=== PATIENT | male | born 1965 | race Caucasian/White ===

== ENCOUNTER 2016-09-30 13:35 | Inpatient (IN) | payer OTHER ==
--- NOTE | ~2016-09-30 | PN ---
Unit #: [id number] #: [id number] Patient: BUCKY ESTEBAN [id number] [facility] [address] [place] [address] [id number] I MR#: [id number] NAME: BUCKY ESTEBAN. ROOM: P211 Age: 51 Sex: M Admission Date: 09/30/2016 : 1965 Attending Physician: Sera Huitron M.D. Admitting Physician: Sera Huitron M.D. Primary Care Physician: Primary Care Physician Anabel ODOM PROGRESS NOTES DATE 10/01/2016 DISCUSSION Mr. Esteban is a 51-year-old white male who was seen today and chart was reviewed and case was discussed with the staff. He has been anxious, withdrawn though has not shown any agitation, irritability and has been cooperative with treatment recommendations and has been taking medications and tolerating them fairly well. MENTAL STATUS EXAMINATION Middle-aged white male who was casually dressed with fair personal hygiene and appears to be in no acute distress or discomfort. He was awake and alert on interaction with intact orientation. His mood was anxious with congruent affect. He denies any suicidal or homicidal ideations. His insight and judgement remains slightly impaired. TREATMENT PLAN 1. Will continue him on his current medications and treatment protocol. Will monitor his response to the medications and make further adjustments as needed. 2. Will continue to follow up. Dictated by... Jose Reynolds/javed TD: 10/02/2016 23:18 JOB #: [id number] Unit #: [id number] #: [id number] Patient: BUCKY ESTEBAN PROGRESS NOTES Page 1 of 1 X Sera Huitron MD PROGRESS NOTE
--- NOTE | ~2016-09-30 | PA ---
Unit #: [id number] #: [id number] Patient: BUCKY ESTEBAN [id number] [facility] [address] [place] [address] [id number] MR#: [id number] NAME: BUCKY ESTEBAN. ROOM: P211 Age: 51 Sex: M Admission Date: 09/30/2016 : 1965 Date of Assessment: 09/30/2016 Attending Physician: Sera Huitron M.D. Admitting Physician: Sera Huitron M.D. Primary Care Physician: Primary Care Physician No PSYCHIATRIC ASSESSMENT DATE OF SERVICE 09/30/2016. IDENTIFYING DATA Mr. Esteban is a 51-year-old white male, who is a resident of [place], [place], and is well known to us from previous multiple encounters and was self-referred to the hospital on a voluntary basis with blood alcohol level of 0.263. CHIEF COMPLAINT "I started drinking again, I couldn't stop." HISTORY OF PRESENT ILLNESS Mr. Esteban is a 51-year-old white male with lifelong history of alcohol dependence, who was recently discharged from my care a couple of months ago and brought himself back to the hospital stating that he started drinking again and he could not stop and "If you don't take me, I kept a bottle at the house because I know I could have a seizure." The patient reports that he relapsed on alcohol and has been drinking about 2 pints a day or more of the whiskey and reports that he has not been eating or sleeping and is not caring for himself and has no day structure and he has been having memory lapses due to drinking and reports history of complicated withdrawals and seizures, and history of delirium tremens and was scared that if he tries to detox on his own, he might end up hurting himself and as such, recommendation for inpatient level of care for medical detox was made and the patient was stepped up to the inpatient unit. SUBSTANCE ABUSE HISTORY The patient has history of experimentation with opioids, acid, cocaine, and cannabis in the past, but alcohol has been his drug of choice as reports that he has been drinking since he was 4 years old and currently has been drinking more than 2 pints of whiskey a day. PAST PSYCHIATRIC HISTORY The patient has had history of inpatient chemical dependency treatment at [facility] and other facilities, and currently he is not active in treatment program, is not seeing a psychiatrist, not taking any psychotropic medications. PAST MEDICAL HISTORY History of withdrawal seizures, hepatitis C, COPD, dyslipidemia. Unit #: [id number] #: [id number] Patient: BUCKY ESTEBAN ALLERGIES No known medication allergies. PERSONAL AND SOCIAL HISTORY A 51-year-old white male, who reports that he is single, unemployed, and lives at home with his mother and father and has fairly decent social support system. MENTAL STATUS EXAMINATION Middle-aged white male who was casually dressed with fair personal hygiene, appears to be in no acute distress or discomfort. He was awake and alert on interaction with intact orientation to time, place, and person. His mood was anxious with a congruent affect. His speech was slow and restricted in content. His thought processes were disorganized with some looseness of associations and suicidal ideations. His insight and judgment remain significantly impaired. DIAGNOSTIC IMPRESSION Psychiatric: Alcohol dependence, moderate and acute withdrawal; alcohol-induced mood disorder. Medical: None. Stressors: Moderate psychosocial stressors. TREATMENT PLAN 1. The patient has presented with a history of substance abuse and mood disorder, and has been decompensating and will need inpatient hospitalization for detoxification, safety, and stabilization. We will start him back on alcohol detox protocol. We will closely monitor for any worsening withdrawal symptoms. 2. Supportive therapy was provided to the patient. 3. Safe, structured, and nourishing environment will be provided. ESTIMATED LENGTH OF STAY 5 to 7 days. ABILITY TO HELP SELF Limited. WILLINGNESS TO HELP SELF The patient appears to be willing to help self. STRENGTHS 1. Communicative. 2. Cooperative. PROBLEMS 1. Chronic dysphoric symptoms. 2. Chronic chemical dependency. 3. Poor social support system. DISCHARGE CRITERIA This will be contingent upon the patient's ability to go through detox without having any significant withdrawal symptoms as well as his ability to stay safe to himself, particularly after discharge from the hospital. Dictated by..Kelly Huitron M.D. Unit #: [id number] #: [id number] Patient: BUCKY ESTEBAN IAA/modl TD: 10/01/2016 07:42 JOB #: [id number] PSYCHIATRIC ASSESSMENT Page 1 of 1 X Sera Huitron MD PSYCHIATRIC ASSESSMENT
--- NOTE | ~2016-09-30 | PN ---
Unit #: [id number] #: [id number] Patient: BUCKY ESTEBAN [id number] [facility] [address] [place] [address] [id number] MR#: [id number] NAME: BUCKY ESTEBAN. ROOM: P211 Age: 51 Sex: M Admission Date: 09/30/2016 : 1965 Attending Physician: Sera Huitron M.D. Admitting Physician: Sera Huitron M.D. Primary Care Physician: Primary Care Physician Anabel VARNER NOTES DATE OF SERVICE 10/03/2016 DISCUSSION Mr. Esteban is a 51-year-old white male who was seen today. Chart was reviewed and case was discussed with the staff. She has been anxious, withdrawn, and rather seclusive to himself. Meanwhile, he has been cooperative with treatment recommendations and has been taking the medications and appears to be coming out of the detox without any complications. MENTAL STATUS EXAMINATION Middle-aged white male who is casually dressed with fair personal hygiene, appears to be in no acute distress or discomfort. The patient was awake and alert on interaction with intact orientation. His mood is anxious with a congruent affect. He denies any suicidal or homicidal ideations. His insight and judgment remain slightly impaired. TREATMENT PLAN 1. We will continue him on his current medications and treatment protocol. We will monitor his response to the medications and make further adjustments as needed. 2. We will continue to follow up. Dictated by... Sera Huitron M.D. IAA/bzg TD: 10/05/2016 08:20 JOB #: [id number] Unit #: [id number] #: [id number] Patient: BUCKY ESTEBAN PROGRESS NOTES Page 1 of 1 X Sera Huitron MD PROGRESS NOTE
--- NOTE | ~2016-09-30 | HP ---
Unit #: [id number] #: [id number] Patient: BUCKY BAIRES [id number] [place] [address] [id number] I MR#: [id number] NAME: BUCKY BAIRES. ROOM: P211 Age: 51 Sex: M Admission Date: 09/30/2016 : 1965 Attending Physician: Sera Huitron M.D. Admitting Physician: Sera Huitron M.D. Primary Care Physician: Primary Care Physician No HISTORY AND PHYSICAL HISTORY OF PRESENT ILLNESS Bucky is a 51 year old admitted to [address] [place] [address] because of his continued abuse of alcohol. He has had other admissions to this facility for the same. PAST MEDICAL HISTORY 1. Long history of alcohol abuse. 2. History of withdrawal seizures. 3. High blood pressure. 4. Hepatitis C. 5. Hyperlipidemia. PAST SURGICAL HISTORY Nothing reported. ALLERGIES No known drug allergies. SOCIAL HISTORY Smokes one pack per day. Drinks at least two pints of liquor on a daily basis. Denies illicit drug use. FAMILY HISTORY Medically noncontributory. REVIEW OF SYSTEMS CONSTITUTIONAL: No fever or chills. HEENT: Denies any sore throat, ear pain or runny nose. CARDIOVASCULAR: Denies chest pain, irregular heart rhythm or palpitations. CHEST: Denies shortness of breath or cough. No hemoptysis. GASTROINTESTINAL: Denies nausea, vomiting, diarrhea or chronic constipation. ENDOCRINE: Denies history of increased thirst or urination. No recent significant weight loss or gain. GENITOURINARY: Denies dysuria, frequency, or hematuria. SKIN: Denies any rashes. HEMATOLOGIC: Denies history of increased bleeding or bruising. MUSCULOSKELETAL: Denies any hot, swollen joints. No generalized muscle pain. NEUROLOGIC: Denies problems with vision or speech. No frequent, severe headaches. No numbness, tingling or weakness in any extremities. Denies loss of bladder or bowel control. Unit #: [id number] #: [id number] Patient: BUCKY BAIRES CURRENT MEDICATIONS Detox protocol PHYSICAL EXAMINATION GENERAL: Alert, well-nourished, in no apparent distress. VITAL SIGNS: Blood pressure 118/82, heart rate 88, respirations 16, temperature 98.6. WEIGHT: 150 pounds. HEIGHT: 5'1". SKIN: Warm and dry without rash or lesion. HEENT: Normocephalic. TMs not viewed. Oral and nasal passages clear. Conjunctivae clear. Pupils equal, round and reactive to light and accommodation. Extraocular movements intact. NECK: Supple without lymphadenopathy or thyromegaly. HEART: Regular rate and rhythm without murmur. LUNGS: Clear. ABDOMEN: Soft, nontender. : Not done. EXTREMITIES: No evidence of cyanosis, clubbing or edema. Moves all extremities without focal deficit. NEUROLOGICAL: Grossly within normal limits. Cranial Nerves: II: Visual cintron are intact. III, IV AND : Extraocular movements are intact. Pupils are equal, round and reactive to light. V: Facial sensation is grossly normal. VII: Facial movements and expression are normal. VIII: Auditory acuity grossly intact. IX, X: Uvula is midline. Phonation is normal. XI: Patient shrugs shoulders and turns head normally. XII: Tongue protrudes in the midline. Sensory and Motor Function: Sensory and motor sensation is grossly normal. Motor: moves all extremities well. Coordination: Gait is normal. Deep Tendon Reflexes: Intact. IMPRESSION Psychiatric admission RECOMMENDATIONS PSYCHIATRIC: Per psychiatrist. MEDICAL: I see no contraindications to participating in facility's activities. MEDICAL PROGNOSIS Good. MEDICAL CONDITION Stable. Dictated by... Maia Castillo PKellyAKelly-Loulou. for Jose Dejesus/danyelle TD: 10/02/2016 02:50 Unit #: [id number] #: [id number] Patient: BUCKY BAIRES JOB #: [id number] HISTORY AND PHYSICAL Page 1 of 1 X Maia Castillo X HISTORY AND PHYSICAL
--- NOTE | ~2016-09-30 | PN ---
Unit #: [id number] #: [id number] Patient: BUCKY ESTEBAN [id number] [facility] [address] [place] [address] [id number] MR#: [id number] NAME: BUCKY ESTEBAN. ROOM: P211 Age: 51 Sex: M Admission Date: 09/30/2016 : 1965 Attending Physician: Sera Huitron M.D. Admitting Physician: Sera Huitron M.D. Primary Care Physician: Anabel Primary Care Physician LEI PROGRESS NOTES DATE 10/02/2016. DISCUSSION Mr. Esteban is a 51-year-old white male who was seen today and chart was reviewed. His case was discussed with the staff. He has been anxious, withdrawn. (1) . He has been cooperative with treatment recommendations and has been taking medications and tolerating them fairly well without any side effects. MENTAL STATUS EXAMINATION Middle-aged white male who was casually dressed with fair personal hygiene and appears to be in no acute distress or discomfort. He was awake and alert on interaction with intact orientation. His mood was anxious with congruent affect. He denies any suicidal or homicidal ideations. His insight and judgement remain slightly impaired. TREATMENT PLAN 1. Will continue him on his current medications and treatment protocol. Will monitor his response to the medications and make further adjustments as needed. 2. Will continue to follow up. Dictated by... Sera Huitron M.D. IAA/gz TD: 10/03/2016 14:55 JOB #: [id number] [facility] PROGRESS NOTES Page 1 of 1 X Sera Huitron MD PROGRESS NOTE
--- NOTE | ~2016-09-30 | DS ---
Unit #: [id number] #: [id number] Patient: BUCKY ESTEBAN [id number] [facility] [address] [place] [address] [id number] I MR#: [id number] NAME: BUCKY ESTEBAN. ROOM: [facility] Age: 51 Sex: M Admission Date: 09/30/2016 : 1965 Discharge Date: 10/05/2016 Attending Physician: Sera Huitron M.D. Primary Care Physician: Primary Care Physician No DISCHARGE SUMMARY IDENTIFYING DATA Mr. Esteban is a 51-year-old single white male, who is a resident of [place], [place], and is known to us from previous multiple encounters and was self-referred to the hospital on voluntary basis with blood alcohol level of 0.263. DISCHARGE DIAGNOSES Psychiatric: Alcohol dependence, moderate and acute withdrawals; alcohol-induced mood disorder. Medical: None. Stressors: Moderate psychosocial stressors. HISTORY OF PRESENT ILLNESS Please see initial psychiatric evaluation for details. PAST PSYCHIATRIC HISTORY Please see initial psychiatric evaluation for details. PAST MEDICAL HISTORY Please see initial psychiatric evaluation for details. HOSPITAL COURSE The patient was [facility] and was oriented to the hospital environment. Routine p.r.n. medications were initiated, and he was started back on his home medications and detox protocol was initiated and was closely monitored. He was taking medications regularly and was tolerating them fairly well and was able to come out of the detox without any complications and was willing to continue treatment on an outpatient basis and as such, it was decided that he will be discharged home and will continue treatment on an outpatient basis. DISCHARGE MEDICATIONS None. DISCHARGE CONDITION Stable. PROGNOSIS Fair. Dictated by... Unit #: [id number] #: [id number] Patient: BUCKY ESTEBAN Jose Reynolds/jackyl TD: 10/05/2016 23:12 JOB #: [id number] DISCHARGE SUMMARY Page 1 of 1 X Sera Huitron MD X DISCHARGE SUMMARY
--- NOTE | ~2016-09-30 | PN ---
Unit #: [id number] #: [id number] Patient: BUCKY ESTEBAN [id number] [facility] [address] [place] [address] [id number] MR#: [id number] NAME: BUCKY ESTEBAN. ROOM: P211 Age: 51 Sex: M Admission Date: 09/30/2016 : 1965 Attending Physician: Sera Huitron M.D. Admitting Physician: Sera Huitron M.D. Primary Care Physician: Primary Care Physician Anabel VARNER NOTES DATE 10/04/2016 DISCUSSION Mr. Esteban is a 51-year-old, white male who was seen today and chart was reviewed and case was discussed with the staff. He has been anxious, withdrawn though has not shown any agitation, irritability and has been cooperative with the treatment recommendations. He has been taking the medication and tolerating them fairly well with no reported side effects. MENTAL STATUS EXAM Middle-aged white male who was casually dressed with fair personal hygiene, appears to be in no acute distress or discomfort. He was awake and alert on interaction with intact orientation. His mood was anxious with congruent affect. He denies any suicidal or homicidal ideation. His insight and judgement remains slightly impaired. TREATMENT PLAN 1. We will continue him on his current treatment protocol. We will monitor his response to the medication and make further adjustments as needed. 2. We will continue to follow up. Dictated by... Jose Reynolds/danyelle TD: 10/07/2016 23:12 JOB #: [id number] Unit #: [id number] #: [id number] Patient: BUCKY ESTEBAN [facility] PROGRESS NOTES Page 1 of 1 X Sera Huitron MD PROGRESS NOTE
[2016-10-01 09:43] LABS: BASOPHIL% 0.6 % (0-2.5); EOSINOPHIL# 0.1 X10e3 (0-0.7); EOSINOPHIL% 0.9 % (0.0-7.0); HEMATOCRIT 44.6 % (38.0-50.0); LYMPHOCYTE# 2.1 X10e3 (1.0-3.5); LYMPHOCYTE% 27.9 % (17.0-45.0); MEAN CELL VOLUME 92.8 FL (83-96); MEAN CORPUSCULAR HEMOGLOBIN 31.3 PG (28-34); MEAN CORPUSCULAR HGB CONC 33.7 g/dL (30-36); MEAN PLATELET VOLUME 8.7 FL (6.5-11.5); MONOCYTE# 0.6 X10e3 (0-1.0); MONOCYTE% 8.3 % (3.0-12.0); NEUTROPHIL# 4.8 X10e3 (1.5-7.1); NEUTROPHIL% 62.3 % (40-75); PLATELET COUNT 194 X10e3 (140-420); RED CELL DISTRIBUTION WIDTH 13.7 % (11.0-15.5); WHITE BLOOD COUNT 7.7 X10e3 (4.0-10.5)
[2016-10-01 09:44] LABS: DIFF IND NO
[2016-10-01 09:48] LABS: URINE APPEARANCE CLOUDY; URINE BILIRUBIN NEG (NEG); URINE BLOOD NEG (NEG); URINE COLOR YELLOW; URINE GLUCOSE 300 MG/DL (NORM); URINE KETONE NEG (NEG); URINE LEUKOCYTE ESTERASE NEG (NEG); URINE NITRATE NEG (NEG); URINE PROTEIN 1+ (NEG); URINE SPECIFIC GRAVITY 1.015 (1.003-1.035); URINE UROBILINOGEN NORM (NORM)
[2016-10-01 09:55] LABS: URINE AMORPHOUS SEDIMENT AMORP URATES; URINE SQUAMOUS EPITHELIAL CELL OCCAS /[HPF]
[2016-10-01 09:57] LABS: THYROID STIMULATING HORMONE 1.27 uIU/ml (0.34-5.60)
[2016-10-01 10:02] LABS: ALBUMIN SERUM 3.7 g/dL (3.5-5.0); BILIRUBIN,TOTAL 1.7 mg/dL (0.2-2.0); BUN/CREATININE RATIO 13.63; CALCIUM SERUM 9.2 mg/dL (8.4-10.2); CREATININE SERUM 1.1 mg/dL (0.6-1.4); GLOM FILT RATE Estimated 76.3 mL/min (>60); POTASSIUM 4.1 mmol/L (3.5-5.1); PROTEIN TOTAL SERUM 5.9 g/dL (6.0-8.3)
[2016-10-01 10:04] LABS: FREE THYROXIN (T4) 0.85 ng/dL (0.58-1.64)
[2016-10-01 10:32] LABS: AMPHETAMINE NEG (NEG); BARBITURATES NEG (NEG); BENZODIAZEPINES NEG (NEG); COCAINE NEG (NEG); MARIJUANA NEG (NEG); OPIATES NEG (NEG); TRICYCLIC ANTIDEPRESSANTS NEG (NEG); U METHADONE NEG (NEG)
== END 2016-10-05 12:38 | disposition home or self-care (01) | DRG 897 ==
LOC: POF 13:35 → P2S 14:15
PROVIDERS: Psychiatry & Neurology Psychiatry
PROC: HZ2ZZZZ Detoxification Services for Substance Abuse Treatment (ICD-10-PCS; principal; 2016-09-30)
DX: F10.230 Alcohol dependence with withdrawal, uncomplicated (principal); R45.851 Suicidal ideations; F10.24 Alcohol dependence with alcohol-induced mood disorder; Y90.8 Blood alcohol level of 240 mg/100 ml or more; F17.210 Nicotine dependence, cigarettes, uncomplicated
CPT/HCPCS: 80053; 80307; 81003; 84439; 84443; 85025; 86592

== ENCOUNTER 2016-10-29 09:00 | Inpatient (IN) | payer OTHER ==
--- NOTE | ~2016-10-29 | PA ---
Unit #: [id number] #: [id number] Patient: BUCKY ESTEBAN [id number] [facility] [address] [place] [address] [id number] I MR#: [id number] NAME: BUCKY ESTEBAN. ROOM: P211 Age: 51 Sex: M Admission Date: 10/29/2016 : 1965 Date of Assessment: 10/29/2016 Attending Physician: Sera Huitron M.D. Admitting Physician: Sera Huitron M.D. Primary Care Physician: Primary Care Physician No PSYCHIATRIC ASSESSMENT DATE OF SERVICE 10/29/2016. IDENTIFYING DATA Mr. Esteban is a 51-year-old, , white male, who is a resident of [place], [place], and is very well known to us from previous multiple encounters and self-referred to the hospital on a voluntary basis. CHIEF COMPLAINT "I'm drinking about 2 pints a day for the last 3 days." HISTORY OF PRESENT ILLNESS Mr. Esteban is a 51-year-old white male with a long history of substance abuse and dependence, who was recently discharged from my care last month and brought himself back to the hospital stating that he has been drinking 2 pints a day for the last 3 days and before that it was about a pint for a week and "I stopped for like a month almost, may be 3 weeks I feel lonely, that is why I started back. The people at stated that I cannot have a girlfriend, but I like AA, but I do not like some of the rules and I feel depressed and lonely and that is the main thing. Once I started drinking, it just got to the point where I cannot stop and I have trouble breathing and sleeping and sleep maybe 2 hours at night and my last drink was this morning on the way here and must have been about 9:00 a.m., just like a little bit of the bottle. If I just stop drinking without getting help, I will have seizures. I know that if I don't get medication and I drink, I will have a seizure and starting to get sick. I am worried about things getting sick and I am getting this thing going on in my brain. It feels like a sobbing on the top, hear noise is a warning sign." He does have a history of withdrawal seizures and delirium tremens and as such, recommendation for inpatient level of care for safety and stabilization was made and the patient was transferred to us. SUBSTANCE ABUSE HISTORY The patient reports history of experimentation with opioids, acid, cocaine, and cannabis in the past, but alcohol has been his drug of choice and has been drinking for 45 years and currently has been drinking 2 pints of alcohol a day. PAST PSYCHIATRIC HISTORY The patient has had a history of multiple inpatient psychiatric and chemical dependency treatments and has been at [facility] multiple times in addition to being at [facility] and at [facility]. Review of the medical records indicate that currently he is not active in any Unit #: [id number] #: [id number] Patient: BUCKY ESTEBAN treatment program, is not seeing a psychiatrist, and is not taking any psychotropic medications. PAST MEDICAL HISTORY Hepatitis C, history of withdrawal seizures, COPD, dyslipidemia. ALLERGIES No known medication allergies. CURRENT MEDICATIONS None. PERSONAL AND SOCIAL HISTORY A 51-year-old white male, who reports that he is single, unemployed, and lives at home with his mother and father and has fairly decent social support system. MENTAL STATUS EXAMINATION Middle-aged white male, who was casually dressed with fair personal hygiene, appears to be in no acute distress or discomfort. He was awake and alert on interaction with intact orientation to time, place, and person. His mood was anxious and depressed with a congruent affect. His speech was slow and restricted in content. He reports having suicidal ideations, but denies any homicidal ideations, and also denies any auditory or visual hallucinations. His insight and judgment remain significantly impaired. DIAGNOSTIC IMPRESSION Psychiatric: Alcohol dependence, moderate and acute withdrawals; alcohol-induced mood disorder. Medical: Hepatitis C, history of withdrawal seizures, chronic obstructive pulmonary disease, dyslipidemia. Stressors: Moderate psychosocial stressors. TREATMENT PLAN 1. The patient has presented with a history of substance abuse and mood disorder and has been decompensating and will need inpatient hospitalization for safety and stabilization. We will start him back on his home medications. We will adjust the medications and monitor response. 2. Supportive therapy was provided to the patient. 3. Safe, structured, and nourishing environment will be reported. ESTIMATED LENGTH OF STAY 5 to 7 days. ABILITY TO HELP SELF Limited. WILLINGNESS TO HELP SELF The patient appears to be willing to help self. STRENGTHS 1. Communicative. 2. Cooperative. PROBLEMS Unit #: [id number] #: [id number] Patient: BUCKY ESTEBAN 1. Chronic dysphoric symptoms. 2. Chronic chemical dependency. 3. Poor social support system. DISCHARGE CRITERIA This will be contingent upon the patient's ability to go through detox without having any significant withdrawal symptoms as well as his ability to stay safe to himself, particularly after discharge from the hospital. Dictated by... Sera Huitron M.D. MARVEL/bayron TD: 10/30/2016 08:21 JOB #: [id number] PSYCHIATRIC ASSESSMENT Page 1 of 1 X Sera Huitron MD X PSYCHIATRIC ASSESSMENT
--- NOTE | ~2016-10-29 | PN ---
Unit #: [id number] #: [id number] Patient: BUCKY ESTEBAN [id number] [facility] [address] [place] [address] [id number] I MR#: [id number] NAME: BUCKY ESTEBAN. ROOM: P211 Age: 51 Sex: M Admission Date: 10/29/2016 : 1965 Attending Physician: Sera Huitron M.D. Admitting Physician: Sera Huitron M.D. Primary Care Physician: Primary Care Physician Anabel ODOM PROGRESS NOTES DATE 10/31/2016 DISCUSSION Mr. Esteban is a 51-year-old, white male who was seen today and chart was reviewed and case was discussed with the staff. He has been anxious, withdrawn and rather seclusive to himself. Meanwhile, he has been cooperative with the treatment recommendations. He has been taking the medication and tolerating them fairly well with no reported side effects. MENTAL STATUS EXAM Middle-aged white male who was casually dressed with fair personal hygiene, appears to be in no acute distress or discomfort. He was awake and alert on interaction with intact orientation. His mood was anxious and depressed with congruent affect. He denies any suicidal or homicidal ideation. Also, denies any auditory or visual hallucinations. His insight and judgement remains slightly impaired. TREATMENT PLAN 1. We will continue him on his current medications and treatment protocol. We will monitor his response to the medication and make further adjustments as needed. 2. We will continue to follow up. Dictated by... Jose Reynolds/danyelle TD: 11/01/2016 03:16 JOB #: [id number] Unit #: [id number] #: [id number] Patient: BUCKY ESTEBAN PROGRESS NOTES Page 1 of 1 X Sera Huitron MD PROGRESS NOTE
--- NOTE | ~2016-10-29 | HP ---
Unit #: [id number] #: [id number] Patient: BUCKY BAIRES [id number] [facility] [address] [place] [address] [id number] I MR#: [id number] NAME: BUCKY BAIRES. ROOM: P211 Age: 51 Sex: M Admission Date: 10/29/2016 : 1965 Attending Physician: Sera Huitron M.D. Admitting Physician: Sera Huitron M.D. Primary Care Physician: Primary Care Physician No HISTORY AND PHYSICAL HISTORY OF PRESENT ILLNESS Bucky is a 51 year old admitted to [address] [place] [address] because of his continued abuse of alcohol. The patient was seen and H and P dated 10/01/2016 was reviewed. This is current. No changes. Please see H and P dated 10/11/2016. Dictated by... Maia Castillo P.A.-C. for Jose Dejesus/danyelle TD: 10/30/2016 02:20 JOB #: [id number] HISTORY AND PHYSICAL Page 1 of 1 X Maia Castillo HISTORY AND PHYSICAL
--- NOTE | ~2016-10-29 | DS ---
Unit #: [id number] #: [id number] Patient: [facility]EBAN [id number] [facility] [address] [place] [address] [id number] MR#: [id number] NAME: BUCKY ESTEBAN. ROOM: P211 Age: 51 Sex: M Admission Date: 10/29/2016 : 1965 Discharge Date: 11/02/2016 Attending Physician: Sera Huitron M.D. Primary Care Physician: Primary Care Physician No DISCHARGE SUMMARY IDENTIFYING DATA Mr. Esteban is a 51-year-old white male who is a resident of [place], [place] and he is known to us from previous multiple encounters and was self-referred to the hospital. DISCHARGE DIAGNOSES Psychiatric: Alcohol dependence, moderate, in acute withdrawals. Alcohol-induced mood disorder. Medical: Hepatitis C, history of withdrawal seizures, chronic obstructive pulmonary disease, dyslipidemia. Stressors: Moderate psychosocial stressors. HISTORY OF PRESENT ILLNESS Please see initial psychiatric evaluation for details. PAST PSYCHIATRIC HISTORY Please see initial psychiatric evaluation for details. PAST MEDICAL HISTORY Please see initial psychiatric evaluation for details. HOSPITAL COURSE The patient was admitted to the adult chemical dependency unit at [facility] and was oriented to the hospital environment. Routine p.r.n. medications were initiated, and he was started on the detox protocol and was closely monitored. He was taking the medications regularly. He was tolerating them fairly well and was able to show a decent therapeutic response with improvement in depression and anxiety and he was able to come out of the detox without any complications, and as such, it was decided that he will be discharged home and will continue treatment on an outpatient basis. DISCHARGE MEDICATIONS None. DISCHARGE CONDITION Stable. PROGNOSIS Fair. Unit #: [id number] #: [id number] Patient: BUCKY ESTEBAN Dictated by... Jose Reynolds/bayron TD: 11/02/2016 07:41 JOB #: [id number] DISCHARGE SUMMARY Page 1 of 1 X Sera Huitron MD X DISCHARGE SUMMARY
--- NOTE | ~2016-10-29 | PN ---
Unit #: [id number] #: [id number] Patient: BUCKY ESTEBAN [id number] [facility] [address] [place] [address] [id number] I MR#: [id number] NAME: BUCKY ESTEBAN. ROOM: P211 Age: 51 Sex: M Admission Date: 10/29/2016 : 1965 Attending Physician: Sera Huitron M.D. Admitting Physician: Sera Huitron M.D. Primary Care Physician: Primary Care Physician Anabel VARNER NOTES DATE 11/01/2016 DISCUSSION Mr. Esteban is a 51-year-old, white male who was seen today and chart was reviewed and case was discussed with the staff. He has been anxious, withdrawn and rather seclusive to himself. Meanwhile, he has been cooperative with treatment recommendations. He has been taking medications and tolerating them fairly well with no reported side effects. MENTAL STATUS EXAM Middle-aged white male who was casually dressed with fair personal hygiene, appears to be in no acute distress or discomfort. He was awake and alert on interaction with intact orientation. His mood was anxious with congruent affect. He denies any suicidal or homicidal ideation. His insight and judgement remains slightly impaired. TREATMENT PLAN 1. We will continue him on his current medications and treatment protocol. We will monitor his response to the medications and make further adjustments as needed. 2. We will continue to follow up. Dictated by... Jose Reynolds/danyelle TD: 11/02/2016 03:47 JOB #: [id number] Unit #: [id number] #: [id number] Patient: BUCKY ESTEBAN LEI PROGRESS NOTES Page 1 of 1 X Sera Huitron MD PROGRESS NOTE
--- NOTE | ~2016-10-29 | PN ---
Unit #: [id number] #: [id number] Patient: BUCKY ESTEBAN [id number] [facility] [address] [place] [address] [id number] I MR#: [id number] NAME: BUCKY ESTEBAN. ROOM: P211 Age: 51 Sex: M Admission Date: 10/29/2016 : 1965 Attending Physician: Sera Huitron M.D. Admitting Physician: Sera Huitron M.D. Primary Care Physician: Primary Care Physician Anabel VARNER NOTES DATE 10/30/2016 DISCUSSION Mr. Esteban is a 51-year-old, white male who was seen today and chart was reviewed and case was discussed with the staff. He has been anxious, withdrawn, seclusive to himself. Meanwhile, he has been cooperative with treatment recommendations. He has been taking medications and tolerating them fairly well with no reported side effects. MENTAL STATUS EXAM Middle-aged white male who was casually dressed with fair personal hygiene, appears to be in no acute distress or discomfort. He was awake and alert on interaction with intact orientation. His mood was anxious and depressed with congruent affect. His speech was slow and goal directed. He denies any suicidal or homicidal ideation. Also, denies any auditory or visual hallucinations. His insight and judgement remains slightly impaired. TREATMENT PLAN 1. We will continue him on his current medications and treatment protocol. We will monitor his response to the medication and make further adjustments as needed. 2. We will continue to follow up. Dictated by... Jose Reynolds/danyelle TD: 10/31/2016 03:13 JOB #: [id number] Unit #: [id number] #: [id number] Patient: BUCKY ESTEBANMAURIZIO PROGRESS NOTES Page 1 of 1 X Sera Huitron MD PROGRESS NOTE
[2016-10-30 12:47] LABS: URINE APPEARANCE CLEAR; URINE BILIRUBIN NEG (NEG); URINE BLOOD NEG (NEG); URINE COLOR YELLOW; URINE GLUCOSE NEG (NEG); URINE KETONE NEG (NEG); URINE LEUKOCYTE ESTERASE NEG (NEG); URINE NITRATE NEG (NEG); URINE PH 5.5 (5-8); URINE PROTEIN NEG (NEG); URINE SPECIFIC GRAVITY 1.017 (1.003-1.035); URINE UROBILINOGEN 0.2 MG/DL (NEG)
[2016-10-30 12:58] LABS: AMPHETAMINE NEG (NEG); BARBITURATES NEG (NEG); BENZODIAZEPINES NEG (NEG); COCAINE NEG (NEG); MARIJUANA NEG (NEG); OPIATES NEG (NEG); TRICYCLIC ANTIDEPRESSANTS NEG (NEG); U METHADONE NEG (NEG)
== END 2016-11-02 10:25 | DRG 897 ==
LOC: P2S 15:04
PROVIDERS: Psychiatry & Neurology Psychiatry
PROC: HZ2ZZZZ Detoxification Services for Substance Abuse Treatment (ICD-10-PCS; principal; 2016-10-29)
DX: F10.239 Alcohol dependence with withdrawal, unspecified (principal); F10.24 Alcohol dependence with alcohol-induced mood disorder; B19.20 Unspecified viral hepatitis C without hepatic coma; J44.9 Chronic obstructive pulmonary disease, unspecified; E78.5 Hyperlipidemia, unspecified
CPT/HCPCS: 80307; 81003; 86592

== ENCOUNTER 2016-12-20 12:00 | Inpatient (IN) | payer OTHER ==
--- NOTE | ~2016-12-20 | HP ---
Unit #: [id number] #: [id number] Patient: BUCKY BAIRES [id number] [place] [address] [id number] I MR#: [id number] NAME: BUCKY BAIRES. ROOM: P207 Age: 51 Sex: M Admission Date: 12/20/2016 : 1965 Attending Physician: Sera Huitron M.D. Admitting Physician: Sera Huitron M.D. Primary Care Physician: Primary Care Physician No HISTORY AND PHYSICAL HISTORY OF PRESENT ILLNESS Bucky is a 51 year old admitted to [address] [place] [address] because of his continued abuse of alcohol. PAST MEDICAL HISTORY 1. Long history of alcohol abuse. 2. History of withdrawal seizures. 3. High blood pressure. 4. Hepatitis C. 5. Hyperlipidemia. PAST SURGICAL HISTORY Nothing reported. ALLERGIES No known drug allergies. SOCIAL HISTORY Smokes 1 pack per day. Drinks at least 2 pints of liquor on a daily basis. Denies illicit drug use. FAMILY HISTORY Medically noncontributory. REVIEW OF SYSTEMS CONSTITUTIONAL: No fever or chills. HEENT: Denies any sore throat, ear pain or runny nose. CARDIOVASCULAR: Denies chest pain, irregular heart rhythm or palpitations. CHEST: Denies shortness of breath or cough. No hemoptysis. GASTROINTESTINAL: Denies nausea, vomiting, diarrhea or chronic constipation. ENDOCRINE: Denies history of increased thirst or urination. No recent significant weight loss or gain. GENITOURINARY: Denies dysuria, frequency, or hematuria. SKIN: Denies any rashes. HEMATOLOGIC: Denies history of increased bleeding or bruising. MUSCULOSKELETAL: Denies any hot, swollen joints. No generalized muscle pain. NEUROLOGIC: Denies problems with vision or speech. No frequent, severe headaches. No numbness, tingling or weakness in any extremities. Denies loss of bladder or bowel control. CURRENT MEDICATIONS Unit #: [id number] #: [id number] Patient: BUCKY BAIRES Detox protocol. PHYSICAL EXAMINATION GENERAL: Alert, well-nourished, in no apparent distress. VITAL SIGNS: Blood pressure 120/82, heart rate 80, respirations 16, temperature 98.6. WEIGHT: 150. HEIGHT: 5 feet 11 inches. SKIN: Warm and dry without rash or lesion. HEENT: Normocephalic. TMs not viewed. Oral and nasal passages clear. Conjunctivae clear. PERRLA. EOMs intact. NECK: Supple without lymphadenopathy or thyromegaly. HEART: Regular rate and rhythm without murmur. LUNGS: Clear. ABDOMEN: Soft, nontender. : Not done. EXTREMITIES: No evidence of cyanosis, clubbing or edema. Moves all without focal deficit. NEUROLOGICAL: Grossly within normal limits. Cranial Nerves: II: Visual cintron are intact. III, IV AND : Extraocular movements are intact. Pupils are equal, round and reactive to light. V: Facial sensation is grossly normal. VII: Facial movements and expression are normal. VIII: Auditory acuity grossly intact. IX, X: Uvula is midline. Phonation is normal. XI: Patient shrugs shoulders and turns head normally. XII: Tongue protrudes in the midline. Sensory and Motor Function: Sensory and motor sensation is grossly normal. Motor: moves all extremities well. Coordination: Gait is normal. Deep Tendon Reflexes: Intact. IMPRESSION Psychiatric admission. RECOMMENDATIONS PSYCHIATRIC: Per psychiatrist. MEDICAL: See no contraindications to participate in facility's activities. MEDICAL PROGNOSIS Good. MEDICAL CONDITION Stable. Dictated by... Maia Castillo PKellyACharisse. for Jose Dejesus/javed TD: 12/20/2016 20:08 JOB #: [id number] Unit #: [id number] #: [id number] Patient: BUCKY BAIRES HISTORY AND PHYSICAL Page 1 of 1 X Maia Castillo HISTORY AND PHYSICAL
--- NOTE | ~2016-12-20 | PN ---
Unit #: [id number] #: [id number] Patient: BUCKY ESTEBAN [id number] [facility] [address] [place] [address] [id number] I MR#: [id number] NAME: BUCKY ESTEBAN. ROOM: P207 Age: 51 Sex: M Admission Date: 12/20/2016 : 1965 Attending Physician: Sera Huitron M.D. Admitting Physician: Sera Huitron M.D. Primary Care Physician: Primary Care Physician Anabel VARNER NOTES DATE 12/23/2016 DISCUSSION Mr. Esteban is a 57-year-old, white male with alcohol dependence who was seen today and chart was reviewed with staff. He has been anxious, withdrawn though has not shown any agitation, irritability and has been cooperative with treatment recommendations. He has been taking medications and tolerating them fairly well. MENTAL STATUS EXAM Middle-aged white male who was casually dressed with fair personal hygiene, appears to be in no acute distress or discomfort. He was awake and alert on interaction with intact orientation. His mood was anxious with congruent affect. He denies any suicidal or homicidal ideation. His insight and judgement remains slightly impaired. TREATMENT PLAN 1. We will continue him on his current medications and treatment protocol. We will monitor his response to medication and make further adjustments as needed. 2. We will continue to follow up. Dictated by... Jose Reynolds/danyelle TD: 12/25/2016 02:55 JOB #: [id number] Unit #: [id number] #: [id number] Patient: BUCKY ESTEBAN LEI PROGRESS NOTES Page 1 of 1 X Sera Huitron MD PROGRESS NOTE
--- NOTE | ~2016-12-20 | PN ---
Unit #: [id number] #: [id number] Patient: BUCKY ESTEBAN [id number] [facility] [address] [place] [address] [id number] I MR#: [id number] NAME: BUCKY ESTEBAN. ROOM: P207 Age: 51 Sex: M Admission Date: 12/20/2016 : 1965 Attending Physician: Sera Huitron M.D. Admitting Physician: Sera Huitron M.D. Primary Care Physician: Primary Care Physician Anabel VARNER NOTES DATE OF SERVICE: 12/24/2016 SUBJECTIVE Mr. Esteban is a 51-year-old white male, who was seen today and chart was reviewed and case was discussed with the staff. He has been anxious, withdrawn, and rather seclusive to himself. has been taking medications and tolerating them fairly well with no reported side effects. MENTAL STATUS EXAMINATION Middle-aged white male, who was casually dressed with fair personal hygiene, appears to be in . He was awake and alert with intact orientation. His mood was anxious with a congruent affect. TREATMENT PLAN 1. We will continue on his current medications and treatment protocol. We will monitor his response . Dictated by... Jose Reynolds/bayron TD: 12/24/2016 14:05 JOB #: [id number] [facility] PROGRESS NOTES Page 1 of 1 X Sera Huitron MD PROGRESS NOTE
--- NOTE | ~2016-12-20 | DS ---
Unit #: [id number] #: [id number] Patient: BUCKY ESTEBAN [id number] [facility] [address] [place] [address] [id number] I MR#: [id number] NAME: BUCKY ESTEBAN. ROOM: [facility] Age: 51 Sex: M Admission Date: 12/20/2016 : 1965 Discharge Date: 12/25/2016 Attending Physician: Sera Huitron M.D. Primary Care Physician: Primary Care Physician No DISCHARGE SUMMARY IDENTIFYING DATA Mr. Esteban is a 51-year-old white male, who is a resident of alcohol dependence, who is known to us from previous encounter, was self-referred to the hospital on a voluntary basis. DISCHARGE DIAGNOSES Psychiatric: Alcohol dependence, moderate and acute withdrawals, alcohol-induced mood disorder. Medical: Hepatitis C, chronic obstructive pulmonary disease, history of withdrawal seizures. Stressors: Moderate psychosocial stressors. HISTORY OF PRESENT ILLNESS Please see initial psychiatric evaluation for details. PAST PSYCHIATRIC HISTORY Please see initial psychiatric evaluation for details. PAST MEDICAL HISTORY Please see initial psychiatric evaluation for details. HOSPITAL COURSE The [facility] and was oriented to the hospital environment. Routine p.r.n. medications were initiated, and he was started back on his home medications and detox protocol for alcohol was initiated and he was closely monitored. He was taking the medications regularly and was tolerating them fairly well and was able to show a decent therapeutic response and as such, it was decided that he will be discharged home and will continue treatment on an outpatient basis. DISCHARGE MEDICATIONS None. DISCHARGE CONDITION Stable. PROGNOSIS Fair. Dictated by... Sera Huitron M.D. Unit #: [id number] #: [id number] Patient: BUCKY ESTEBAN IAA/modl TD: 12/25/2016 12:45 JOB #: [id number] DISCHARGE SUMMARY Page 1 of 1 X Sera Huitron MD X DISCHARGE SUMMARY
--- NOTE | ~2016-12-20 | PN ---
Unit #: [id number] #: [id number] Patient: BUCKY ESTEBAN [id number] [facility] [address] [place] [address] [id number] I MR#: [id number] NAME: BUCKY ESTEBAN. ROOM: P207 Age: 51 Sex: M Admission Date: 12/20/2016 : 1965 Attending Physician: Sera Huitron M.D. Admitting Physician: Sear Huitorn M.D. Primary Care Physician: Primary Care Physician Anabel ODOM PROGRESS NOTES DATE December 21, 2016 DISCUSSION Mr. Esteban is a 51-year-old white male, who was seen today and chart was reviewed and the case was discussed with the staff. He has been anxious, withdrawn, restless, and discomfort. Meanwhile, he has been taking the medications and tolerating them fairly well with no reported side effects. MENTAL STATUS EXAMINATION Middle-aged Young white male, who was casually dressed with fair personal hygiene and appears to be in no acute distress or discomfort. He was awake and alert with impaired attention and concentration. His mood is anxious with a congruent affect. He denies any suicidal or homicidal ideations. His insight and judgment remain slightly impaired. TREATMENT PLAN 1. We will continue him on his current medications and treatment protocol, and will monitor his response to the medications, and make further adjustments as needed. 2. We will continue to followup. Dictated by... Jose Reynolds/zoila TD: 12/21/2016 13:04 JOB #: [id number] Unit #: [id number] #: [id number] Patient: BUCKY ESTEBAN PROGRESS NOTES Page 1 of 1 X Sera Huitron MD PROGRESS NOTE
--- NOTE | ~2016-12-20 | PN ---
Unit #: [id number] #: [id number] Patient: BUCKY ESTEBAN [id number] [facility] [address] [place] [address] [id number] I MR#: [id number] NAME: BUCKY ESTEBAN. ROOM: P207 Age: 51 Sex: M Admission Date: 12/20/2016 : 1965 Attending Physician: Sera Huitron M.D. Admitting Physician: Sera Huitron M.D. Primary Care Physician: Primary Care Physician Anabel ODOM PROGRESS NOTES DATE 12/22/2016 DISCUSSION Mr. Esteban is a 51-year-old white male who was seen today and chart was reviewed and case was discussed with the staff. Anxious, withdrawn and pacing the hallways and seen to be in some distress and discomfort as he is going through detox. Meanwhile, he has been taking medications and tolerating them fairly well. MENTAL STATUS EXAMINATION Middle-aged white male who was casually dressed with fair personal hygiene and appears to be in slight distress and discomfort. He was awake and alert with intact orientation. His mood was anxious with a congruent affect. He denies any suicidal or homicidal ideations. His insight and judgement remains slightly impaired. TREATMENT PLAN 1. Will continue his current treatment protocol and will monitor his response and make further adjustments as needed. 2. Will continue to follow up. Dictated by... Jose Reynolds/javed TD: 12/22/2016 18:31 JOB #: [id number] Unit #: [id number] #: [id number] Patient: BUCKY ESTEBAN PROGRESS NOTES Page 1 of 1 X Sera Huitron MD PROGRESS NOTE
--- NOTE | ~2016-12-20 | PA ---
Unit #: [id number] #: [id number] Patient: BUCKY ESTEBAN [id number] [facility] [address] [place] [address] [id number] I MR#: [id number] NAME: BUCKY ESTEBAN. ROOM: P207 Age: 51 Sex: M Admission Date: 12/20/2016 : 1965 Date of Assessment: Attending Physician: Sera Huitron M.D. Admitting Physician: Sera Huitron M.D. Primary Care Physician: Primary Care Physician No PSYCHIATRIC ASSESSMENT DATE OF SERVICE 12/20/2016. IDENTIFYING DATA Mr. Esteban is a 51-year-old, , white male with a history of alcohol dependence, who is a resident of [place], [place], and is very well known to us from previous multiple encounters and was self-referred back to the hospital on a voluntary basis with a blood alcohol level of 0.217. CHIEF COMPLAINT "I cannot carry it out and stop on my own." HISTORY OF PRESENT ILLNESS Mr. Esteban is a 51-year-old white male with a long history of alcohol dependence, who was recently detoxed and now presented himself again stating that he cannot stop drinking on his own and "too much of drinking and I cannot stop, I am sick to ." The patient reports he has been attending meetings and was sober for a month and he relapsed a couple of weeks ago and started drinking half a gallon of whiskey and is trying to taper off by drinking just one pint a day for the past few days and his last drink was today about 1 hour ago and has a history of withdrawal seizures and history of delirium tremens and his last use was 3 years ago; however, he was seen to be in significant distress and discomfort and does report increasing depression, anxiety, irritability, but denies any suicidal ideations, intent, or plan and as such, recommendation for inpatient detox was made and the patient was transferred to us. SUBSTANCE ABUSE HISTORY The patient reports history of heroin abuse via IV in the past, but reports that he has not used any heroin for the last few years and alcohol has been his drug of choice as he has been drinking half a gallon a day. PAST PSYCHIATRIC HISTORY The patient has had a history of numerous and multiple inpatient chemical dependency treatments including being at [facility], [facility], and [facility], and review of the medical records indicate that he is currently not active in any treatment program, is not seeing a psychiatrist, and not taking any psychotropic medications. PAST MEDICAL HISTORY Hepatitis C, COPD, history of withdrawal seizures. Unit #: [id number] #: [id number] Patient: BUCKY ESTEBAN ALLERGIES No known medication allergies. PERSONAL AND SOCIAL HISTORY A 51-year-old white male, who reports that he is single, unemployed, and lives alone and has poor social support system. MENTAL STATUS EXAMINATION Middle-aged white male, who was casually dressed with fair personal hygiene, appears to be in no acute distress or discomfort. He was awake and alert on interaction with intact orientation. His mood was anxious and depressed with a congruent affect. His speech was slow and goal directed. He denies any suicidal or homicidal ideations and also denies any auditory or visual hallucinations. His insight and judgment remain slightly impaired. DIAGNOSTIC IMPRESSION Psychiatric: Alcohol dependence, moderate and acute withdrawals; alcohol-induced mood disorder. Medical: Hepatitis C, chronic obstructive pulmonary disease, history of withdrawal seizures. TREATMENT PLAN 1. The patient has presented with a history of substance abuse and mood disorder, and has been decompensating and will need inpatient hospitalization for detoxification, safety, and stabilization. We will start him on detox protocol. We will monitor his response to medications and make further adjustments as needed. 2. Supportive therapy was provided to the patient. 3. Safe, structured, and nourishing environment will be provided. ESTIMATED LENGTH OF STAY 4 to 5 days. ABILITY TO HELP SELF Limited. WILLINGNESS TO HELP SELF The patient appears to be willing to help self. STRENGTHS 1. Communicative. 2. Cooperative. PROBLEMS 1. Chronic chemical dependency. 2. Poor social support system. DISCHARGE CRITERIA This will be contingent upon the patient's ability to go through detox without having any significant withdrawal symptoms as well as his ability to stay safe to himself, particularly after discharge from the hospital. Dictated by... Sera Huitron M.D. Unit #: [id number] #: [id number] Patient: BUCKY ESTEBAN IAA/modl TD: 12/21/2016 23:12 JOB #: [id number] PSYCHIATRIC ASSESSMENT Page 1 of 1 X Sera Huitron MD PSYCHIATRIC ASSESSMENT
[2016-12-21 10:08] LABS: URINE APPEARANCE CLEAR; URINE BILIRUBIN NEG (NEG); URINE BLOOD NEG (NEG); URINE COLOR YELLOW; URINE GLUCOSE NEG (NEG); URINE KETONE NEG (NEG); URINE LEUKOCYTE ESTERASE NEG (NEG); URINE NITRATE NEG (NEG); URINE PROTEIN NEG (NEG); URINE SPECIFIC GRAVITY 1.023 (1.003-1.035)
[2016-12-21 10:09] LABS: BASOPHIL% 0.5 % (0-2.5); EOSINOPHIL# 0.1 X10e3 (0-0.7); EOSINOPHIL% 1.3 % (0.0-7.0); HEMATOCRIT 44.2 % (38.0-50.0); HEMOGLOBIN 14.7 gm/dL (13.0-16.0); LYMPHOCYTE# 1.7 X10e3 (1.0-3.5); LYMPHOCYTE% 28.2 % (17.0-45.0); MEAN CELL VOLUME 93.1 FL (83-96); MEAN CORPUSCULAR HGB CONC 33.3 g/dL (30-36); MEAN PLATELET VOLUME 8.4 FL (6.5-11.5); MONOCYTE# 0.6 X10e3 (0-1.0); MONOCYTE% 10.8 % (3.0-12.0); NEUTROPHIL# 3.6 X10e3 (1.5-7.1); NEUTROPHIL% 59.2 % (40-75); PLATELET COUNT 213 X10e3 (140-420); RED BLOOD COUNT 4.74 X10e (3.90-5.60)
[2016-12-21 10:18] LABS: ALBUMIN SERUM 3.7 g/dL (3.5-5.0); BILIRUBIN,TOTAL 1.5 mg/dL (0.2-2.0); BUN/CREATININE RATIO 17.77; CALCIUM SERUM 9.3 mg/dL (8.4-10.2); CREATININE SERUM 0.9 mg/dL (0.6-1.4); GLOM FILT RATE Estimated 97.2 mL/min (>60); POTASSIUM 4.5 mmol/L (3.5-5.1)
[2016-12-21 10:24] LABS: DIFF IND NO
[2016-12-21 10:24] LABS: AMPHETAMINE NEG (NEG); BARBITURATES NEG (NEG); BENZODIAZEPINES NEG (NEG); COCAINE NEG (NEG); MARIJUANA NEG (NEG); OPIATES NEG (NEG); TRICYCLIC ANTIDEPRESSANTS NEG (NEG); U METHADONE NEG (NEG)
== END 2016-12-25 12:00 | disposition home or self-care (01) | DRG 897 ==
LOC: POF 14:44 → P2S 14:44
PROVIDERS: Psychiatry & Neurology Psychiatry
PROC: HZ2ZZZZ Detoxification Services for Substance Abuse Treatment (ICD-10-PCS; principal; 2016-12-20)
DX: F10.239 Alcohol dependence with withdrawal, unspecified (principal); F10.24 Alcohol dependence with alcohol-induced mood disorder; I10 Essential (primary) hypertension; J44.9 Chronic obstructive pulmonary disease, unspecified; E78.5 Hyperlipidemia, unspecified; F17.210 Nicotine dependence, cigarettes, uncomplicated
CPT/HCPCS: 80053; 80307; 81003; 85025; 86592

== ENCOUNTER 2017-03-08 20:00 | Inpatient (IN) | payer OTHER ==
[~2017-03-08] VITALS: Ht 180.3 cm; Wt 65.8 kg
--- NOTE | ~2017-03-08 | PN ---
Unit #: [id number] #: [id number] Patient: BUCKY ESTEBAN [id number] [facility] [address] [place] [address] [id number] I MR#: [id number] NAME: BUCKY ESTEBAN. ROOM: 71 Age: 52 Sex: M Admission Date: 03/08/2017 : 1965 Attending Physician: Sera Huitron M.D. Admitting Physician: Sera Huitron M.D. Primary Care Physician: Radha Doctor Not In System [facility] PROGRESS NOTES DATE March 10, 2017 DISCUSSION Mr. Esteban is a 52-year-old white male, who was seen today and chart was reviewed and the case was discussed with the staff. He has been anxious, withdrawn, and rather seclusive to himself. Meanwhile, he has been cooperative with the treatment recommendations and he has been taking the medications and tolerating them fairly well with no reported side effects. MENTAL STATUS EXAMINATION Young white male, who was casually dressed with fair personal hygiene and appears to be in no acute distress or discomfort. He was awake and alert on interaction with intact orientation. His mood is anxious with a congruent affect. His speech is slow and restricted in content. He denies any suicidal or homicidal ideations. His insight and judgment remain slightly impaired. TREATMENT PLAN 1. We will continue him on his current medications and treatment protocol, and will monitor his response to the medications, and make further adjustments as needed. 2. We will continue to followup. Dictated by... Jose Reynolds/zoila TD: 03/13/2017 08:53 JOB #: [id number] Unit #: [id number] #: [id number] Patient: BUCKY ESTEBAN [facility] PROGRESS NOTES Page 1 of 1 X Sera Huitron MD PROGRESS NOTE
--- NOTE | ~2017-03-08 | PN ---
Unit #: [id number] #: [id number] Patient: BUCKY ESTEBAN [id number] [facility] [address] [place] [address] [id number] I MR#: [id number] NAME: BUCKY ESTEBAN. ROOM: P171 Age: 52 Sex: M Admission Date: 03/08/2017 : 1965 Attending Physician: Sera Huitron M.D. Admitting Physician: Sera Huitron M.D. Primary Care Physician: Radha Doctor Not In System [facility] PROGRESS NOTES DATE OF SERVICE: 03/12/2017 SUBJECTIVE Mr. Esteban is a 52-year-old white male, who was seen today and chart was reviewed, and case was discussed with the staff. He has been anxious, withdrawn, rather seclusive to himself. Meanwhile, he has been cooperative with treatment recommendations and has been taking medications and tolerating them fairly well with no reported side effects. MENTAL STATUS EXAMINATION Middle-aged white male who was casually dressed with fair personal hygiene, appears to be in no acute distress or discomfort. He was awake and alert on interaction with intact orientation. His mood was anxious with a congruent affect. He denies any suicidal or homicidal ideations. His insight and judgment remain slightly impaired. TREATMENT PLAN 1. We will continue him on his current medications and treatment protocol. We will monitor his response to medications and make further adjustments as needed. 2. We will continue to follow up. Dictated by... Jose Reynolds/bayron TD: 03/13/2017 14:44 JOB #: [id number] [facility] PROGRESS NOTES Page 1 of 1 X Sera Huitron MD PROGRESS NOTE
--- NOTE | ~2017-03-08 | PN ---
Unit #: [id number] #: [id number] Patient: BUCKY ESTEBAN [id number] [facility] [address] [place] [address] [id number] I MR#: [id number] NAME: BUCKY ESTEBAN. ROOM: P171 Age: 52 Sex: M Admission Date: 03/08/2017 : 1965 Attending Physician: Sera Huitron M.D. Admitting Physician: Sera Huitron M.D. Primary Care Physician: Radha Doctor Not In System [facility] PROGRESS NOTES DATE OF SERVICE: 03/11/2017 SUBJECTIVE Mr. Esteban is 52-year-old white male with alcohol dependence and mood disorder, who was seen today and chart was reviewed and case was discussed with the staff. He is lying in his bed and reports not feeling good and has been complaining of persistent anxiety and depression. Meanwhile, he has been taking medications and tolerating them fairly well with no reported side effects. MENTAL STATUS EXAMINATION Middle-aged white male, who was casually dressed with a fair personal hygiene and appears to be in no acute distress or discomfort. He was awake and alert on interaction with intact orientation. His mood was anxious with a congruent affect. His speech is slow and goal directed. He denies any suicidal or homicidal ideations and also denies any auditory or visual hallucinations. His insight and judgment remain slightly impaired. TREATMENT PLAN 1. We will continue him on his current medications and treatment protocol. We will monitor his response to the medications and make further adjustments as needed. 2. We will continue to follow up. Dictated by... Jose Reynolds/bayron TD: 03/13/2017 02:51 JOB #: [id number] Unit #: [id number] #: [id number] Patient: BUCKY ESTEBAN [facility] PROGRESS NOTES Page 1 of 1 X Sera Huitron MD PROGRESS NOTE
--- NOTE | ~2017-03-08 | CO ---
Unit #: [id number] #: [id number] Patient: BUCKY BAIRES [id number] [place] [address] [id number] I MR#: [id number] NAME: BUCKY BAIRES ROOM: [facility] Age: 52 Sex: M Admission Date: 03/08/2017 : 1965 Attending Physician: Sera Huitron M.D. Primary Care Physician: Generic Doctor Not In System Consultation Date: 03/09/2017 CONSULTATION REPORT HISTORY OF PRESENT ILLNESS Bucky reports a history of COPD. He has chronic coughing, wheezing, and shortness of air. He has an inhaler at home, but he has not been using that in several years. He was recently on antibiotics for an oral infection. He is not sure which antibiotic he was on. He cannot recall his last chest x-ray. He has no other complaints. PHYSICAL EXAMINATION CARDIAC: Regular rate and rhythm. No murmurs, gallops, or rubs. RESPIRATORY: Bilateral wheezing in all lobes, audible cough during exam. ASSESSMENT AND PLAN Chronic obstructive pulmonary disease. We will begin Symbicort and ProAir. We will also obtain a chest x-ray. If needed, we will consider antibiotics and steroids depending on chest x-ray results. We will continue to follow. Dictated by... Ankita Damian/bayron TD: 03/10/2017 03:11 JOB #: [id number] CONSULTATION REPORT Page 1 of 1 X CHESTER FOWLER APRN X CONSULTATION REPORT
--- NOTE | ~2017-03-08 | HP ---
Unit #: [id number] #: [id number] Patient: BUCKY BAIRES [id number] [place] [address] [id number] I MR#: [id number] NAME: BUCKY BAIRES. ROOM: [facility] Age: 52 Sex: M Admission Date: 03/08/2017 : 1965 Attending Physician: Sera Huitron M.D. Admitting Physician: Sera Huitron M.D. Primary Care Physician: Generic Doctor Not In System HISTORY AND PHYSICAL HISTORY OF PRESENT ILLNESS Bucky is a 52-year-old male admitted on 03/08/2017 to [facility] for detox from alcohol. PAST MEDICAL HISTORY 1. COPD. 2. Hepatitis C. 3. Withdrawal seizures. PAST SURGICAL HISTORY None. ALLERGIES None. SOCIAL HISTORY Smokes 2 packs of cigarettes daily. Drinks a pint of alcohol daily. No illegal drug use. He is currently single and living with his parents. FAMILY HISTORY Noncontributory. REVIEW OF SYSTEMS CONSTITUTIONAL: No fever or chills. HEENT: Denies any sore throat, ear pain or runny nose. CARDIOVASCULAR: Denies chest pain, irregular heart rhythm or palpitations. CHEST: Denies shortness of breath or cough. No hemoptysis. GASTROINTESTINAL: Denies nausea, vomiting, diarrhea or chronic constipation. ENDOCRINE: Denies history of increased thirst or urination. No recent significant weight loss or gain. GENITOURINARY: Denies dysuria, frequency, or hematuria. SKIN: Denies any rashes. HEMATOLOGIC: Denies history of increased bleeding or bruising. MUSCULOSKELETAL: Denies any hot, swollen joints. No generalized muscle pain. NEUROLOGIC: Denies problems with vision or speech. No frequent, severe headaches. No numbness, tingling or weakness in any extremities. Denies loss of bladder or bowel control. CURRENT MEDICATIONS None. Unit #: [id number] #: [id number] Patient: BUCKY BAIRES PHYSICAL EXAMINATION GENERAL: Alert, oriented, in no acute distress. VITAL SIGNS: Blood pressure 145/86, heart rate 87, respirations 18, temperature 97.8. HEIGHT: 5 feet 11. WEIGHT: 145 pounds. SKIN: Warm and dry without rash or lesion. HEENT: Normocephalic. TMs not viewed. Oral and nasal passages clear. Conjunctivae clear. PERRLA. EOMs intact. NECK: Supple without lymphadenopathy or thyromegaly. HEART: Regular rate and rhythm without murmur. LUNGS: Wheezing in all lobes. Medical consult completed. ABDOMEN: Soft, nontender, without masses or hepatosplenomegaly. : Not done. EXTREMITIES: No evidence of cyanosis, clubbing or edema. Moves all without focal deficit. NEUROLOGICAL: Grossly within normal limits. Cranial Nerves: II: Visual cintron are intact. III, IV AND : Extraocular movements are intact. Pupils are equal, round and reactive to light. V: Facial sensation is grossly normal. VII: Facial movements and expression are normal. VIII: Auditory acuity grossly intact. IX, X: Uvula is midline. Phonation is normal. XI: Patient shrugs shoulders and turns head normally. XII: Tongue protrudes in the midline. Sensory and Motor Function: Sensory and motor sensation is grossly normal. Motor: moves all extremities well. Coordination: Gait is normal. Deep Tendon Reflexes: Intact. IMPRESSION 1. Psychiatric admission. 2. Chronic obstructive pulmonary disease. 3. Hepatitis C. 4. Withdrawal seizure. RECOMMENDATIONS PSYCHIATRIC: Per psychiatrist. MEDICAL: No contraindication to participate in facility's activities. MEDICAL PROGNOSIS Good. MEDICAL CONDITION Stable. Dictated by... Ankita Damian/javed TD: 03/09/2017 15:28 JOB #: [id number] Unit #: [id number] #: [id number] Patient: DEQUANBUCKY [facility] HISTORY AND PHYSICAL Page 1 of 1 X CHESTER FOWLER APRN HISTORY AND PHYSICAL
--- NOTE | ~2017-03-08 | DS ---
Unit #: [id number] #: [id number] [facility] [id number] [facility] [address] [place] [address] [id number] I MR#: [id number] NAME: BUCKY BAIRES. ROOM: 71 Age: 52 Sex: M Admission Date: 03/08/2017 : 1965 Discharge Date: 03/13/2017 Attending Physician: Sera Huitron M.D. Primary Care Physician: Generic Doctor Not In System DISCHARGE SUMMARY JOB NOTE: VERIFY MRN IDENTIFYING DATA Mr. Guerra is a 52-year-old white male, who is a resident of [place], [place], and is known to us from previous encounter and was self-referred to the hospital with a blood alcohol level of 0.208. DISCHARGE DIAGNOSES Psychiatric: Alcohol dependence, moderate, in acute withdrawals; opioid dependence, moderate; and alcohol-induced mood disorder. Medical: History of withdrawal seizures, hepatitis C, and chronic obstructive pulmonary disease. Stressors: Mild psychosocial stressors. HISTORY OF PRESENT ILLNESS Please see initial psychiatric evaluation for details. PAST PSYCHIATRIC HISTORY Please see initial psychiatric evaluation for details. PAST MEDICAL HISTORY Please see initial psychiatric evaluation for details. HOSPITAL COURSE The patient was admitted to the adult chemical dependency unit at [facility] and was oriented to the hospital environment. Routine p.r.n. medications were initiated, and he was started back on his home medications, and detox protocol was initiated and he was closely monitored. He was taking the medications regularly and was tolerating them fairly well and was able to show a decent and therapeutic response and was able to come out of the detox without any complications, and as such, it was decided that he will be discharged home and will continue treatment on an outpatient basis. DISCHARGE MEDICATIONS None. DISCHARGE CONDITION Stable. PROGNOSIS Fair. Unit #: [id number] #: [id number] Patient: BUCKY BAIRES Dictated by... Jose Reynolds/bayron TD: 03/13/2017 16:28 JOB #: [id number] DISCHARGE SUMMARY Page 1 of 1 X Sera Huitron MD X DISCHARGE SUMMARY
--- NOTE | ~2017-03-08 | CO ---
Unit #: [id number] #: [id number] Patient: BUCKY BAIRES [id number] [place] [address] [id number] MR#: [id number] NAME: BUCKY BAIRES. ROOM: P171 Age: 52 Sex: M Admission Date: 03/08/2017 : 1965 Attending Physician: Sera Huitron M.D. Primary Care Physician: Generic Doctor Not In System Consultation Date: 03/10/2017 CONSULTATION REPORT HISTORY OF PRESENT ILLNESS Bucky was seen yesterday for cough and wheezing. He was started on Symbicort and albuterol inhalers for diagnosis of COPD and received a chest x-ray yesterday. Chest x-ray today showed no acute findings, was within normal limits. Today, he reports that he is feeling better. Staff says he has been ambulating on the unit and participated in groups and does look much better. He is not having as much coughing and wheezing today. He does report this morning he did have some wheezing, but that has resolved this afternoon. No shortness of breath. No chest pain. No other complaints. PHYSICAL EXAMINATION CARDIAC: Regular rate and rhythm. No murmurs, gallops, or rubs. RESPIRATORY: Decreased wheezes in all lobes when compared to yesterday. ASSESSMENT AND PLAN Chronic obstructive pulmonary disease. We will continue with our current plan. Please notify if symptoms not continued to improve. Dictated by... Ankita Damian/bayron TD: 03/12/2017 02:10 JOB #: [id number] CONSULTATION REPORT Page 1 of 1 X CHESTER FOWLER APRN X CONSULTATION REPORT
--- NOTE | ~2017-03-08 | CR63 ---
[facility] A Service of [facility] & [facility] RADIOLOGY TEXT RESULTS PATIENT: BUCKY BAIRES LOCATION: P1E P171-2 : [birth year] UNIT #: [id number] AGE: [address]: Sera Huitron MD SEX: M ORDER DR: [id number] [facility] [address]. [place], [place] [address] [id number] MR#: [id number] Acc #: [id number] NAME: BUCKY BAIRES. : 1965 SEX: M STUDY DATE/TIME: 03/09/2017 15:33 UNIT: [facility] ROOM: [facility] STUDY DESCRIPTION: CR Chest 2 View Attending Physician: Sera Huitron M.D. Ordering Physician: Sera Huitron M.D. Primary Care Physician: Generic Doctor Not In System MEDICAL IMAGING REPORT This report is preliminary unless electronic signature is present EXAM PA and lateral chest HISTORY Shortness of air and COPD. Chronic symptoms. FINDINGS Two views of the chest demonstrate mild hyperinflation of both lungs. No airspace infiltrates or effusions. Small cervical ribs. Small, calcified left hilar nodes and calcified granulomas in both lungs. IMPRESSION No acute findings and no active disease. Dictated by... Kosta Pratt M.D. THIS IS AN ELECTRONICALLY VERIFIED REPORT Kosta Pratt M.D. at 03/10/2017 10:38 PM DFL/psc TD: 03/10/2017 14:55 JOB #: [id number] MEDICAL IMAGING REPORT Page 1 of 1 COPY
--- NOTE | ~2017-03-08 | PA ---
Unit #: [id number] #: [id number] [facility]: [facility]AN [id number] [facility] [address] [place] [address] [id number] I MR#: [id number] NAME: BUCKY ESTEBAN ROOM: 71 Age: 52 Sex: M Admission Date: 03/08/2017 : 1965 Date of Assessment: 03/09/2017 Attending Physician: Sera Huitron M.D. Admitting Physician: Sera Huitron M.D. Primary Care Physician: Generic Doctor Not In System PSYCHIATRIC ASSESSMENT DATE OF SERVICE 03/09/2017. IDENTIFYING DATA Mr. Esteban is a 52-year-old white male, who is a resident of [place], [place], and is known to me from previous encounter, was brought to the hospital with a blood alcohol level of 0.208. CHIEF COMPLAINT "I've enough money to kill myself if I keep going to the liquor store." HISTORY OF PRESENT ILLNESS Mr. Esteban is a 52-year-old white male with long history of alcohol dependence, who came to the hospital intoxicated and reported that he has been consuming a pint or more of vodka and stated "I've enough money to kill myself if I keep going to the liquor store, I just want to stop drinking and I can't do it on my own." He reports that he drinks 2 pints daily and reports that he relapsed a week ago and has been on a binge with drinking 2 pints on daily basis and has been reporting increasing depression, anxiety, irritability, restlessness, feelings of hopelessness and helplessness, though he denies any suicidal ideations, intent, or plan. SUBSTANCE ABUSE HISTORY The patient reports history of heroin and cannabis abuse in the past, and currently alcohol has been his drug of choice and reports that he has been drinking 2 pints on daily basis. PAST PSYCHIATRIC HISTORY The patient has had [facility] and has been to [facility] as well. Review of the medical records indicate currently he is not active in any treatment program, is not seeing a psychiatrist, and is not taking any psychotropic medications. PAST MEDICAL HISTORY Significant for history of withdrawal seizures, COPD, hepatitis C. ALLERGIES No known medication allergies. CURRENT MEDICATIONS None. Unit #: [id number] #: [id number] Patient: BUCKY ESTEBAN PERSONAL AND SOCIAL HISTORY A 52-year-old white male, who reports that he is single, unemployed, and lives at home with his parents and has fairly decent social support system. MENTAL STATUS EXAMINATION Middle-aged white male who was casually dressed with fair personal hygiene, appears to be in no acute distress or discomfort. He was awake and alert on interaction with intact orientation to time, place, and person. His mood was anxious and depressed with a congruent affect. His speech was slow and restricted in content. His thought processes were disorganized with some looseness of associations and flight of ideas. He denies any suicidal or homicidal ideations and also denies any auditory or visual hallucinations. His insight and judgment remain significantly impaired. DIAGNOSTIC IMPRESSION Psychiatric: Alcohol dependence, moderate and acute withdrawals; opioid dependence, moderate; alcohol-induced mood disorder. Medical: History of withdrawal seizures, hepatitis C, chronic obstructive pulmonary disease. Stressors: Moderate psychosocial stressors. TREATMENT PLAN 1. The patient has presented with history of substance abuse and mood disorder, and has been decompensating and will need inpatient hospitalization for detoxification, safety, and stabilization. We will start him back on his home medications and alcohol detox protocol will be initiated. 2. Supportive therapy was provided to the patient. 3. Safe, structured, and nourishing environment will be provided. ESTIMATED LENGTH OF STAY 4 to 5 days. ABILITY TO HELP SELF Limited. WILLINGNESS TO HELP SELF The patient appears to be willing to help self. STRENGTHS 1. Communicative. 2. Cooperative. PROBLEMS 1. Chronic dysphoric symptoms. 2. Poor social support system. DISCHARGE CRITERIA This will be contingent upon the patient's ability to go through detox without having any significant withdrawal symptoms as well as his ability to stay safe to himself, particularly after discharge from the hospital. Dictated by... Jose Reynolds/bayron Unit #: [id number] #: [id number] Patient: BUCKY ESTEBAN TD: 03/09/2017 22:58 JOB #: [id number] PSYCHIATRIC ASSESSMENT Page 1 of 1 X Sera Huitron MD X PSYCHIATRIC ASSESSMENT
[2017-03-10 11:20] LABS: ALBUMIN SERUM 4.2 g/dL (3.5-5.0); BILIRUBIN,TOTAL 1.1 mg/dL (0.2-2.0); CALCIUM SERUM 9.2 mg/dL (8.4-10.2); POTASSIUM 4.3 mmol/L (3.5-5.1); PROTEIN TOTAL SERUM 6.6 g/dL (6.0-8.3)
[2017-03-10 12:39] LABS: BASOPHIL# 0.1 X10e3 (0-0.3); BASOPHIL% 0.8 % (0-2.5); EOSINOPHIL# 0.1 X10e3 (0-0.7); EOSINOPHIL% 0.7 % (0.0-7.0); HEMATOCRIT 47.8 % (38.0-50.0); HEMOGLOBIN 15.9 gm/dL (13.0-16.0); LYMPHOCYTE# 1.8 X10e3 (1.0-3.5); LYMPHOCYTE% 24.2 % (17.0-45.0); MEAN CELL VOLUME 93.6 FL (83-96); MEAN CORPUSCULAR HEMOGLOBIN 31.1 PG (28-34); MEAN CORPUSCULAR HGB CONC 33.2 g/dL (30-36); MEAN PLATELET VOLUME 9.4 FL (6.5-11.5); MONOCYTE# 0.6 X10e3 (0-1.0); NEUTROPHIL# 4.9 X10e3 (1.5-7.1); NEUTROPHIL% 66.3 % (40-75); PLATELET COUNT 203 X10e3 (140-420); RED BLOOD COUNT 5.11 X10e (3.90-5.60); RED CELL DISTRIBUTION WIDTH 14.4 % (11.0-15.5); WHITE BLOOD COUNT 7.4 X10e3 (4.0-10.5)
[2017-03-10 12:46] LABS: DIFF IND NO
[2017-03-12 10:10] LABS: URINE APPEARANCE CLEAR; URINE BLOOD NEG (NEG); URINE COLOR DK YELLOW; URINE GLUCOSE NEG (NEG); URINE KETONE NEG (NEG); URINE LEUKOCYTE ESTERASE NEG (NEG); URINE NITRATE NEG (NEG); URINE PH 6.5 (5-8); URINE PROTEIN NEG (NEG); URINE SPECIFIC GRAVITY 1.031 (1.003-1.035)
[2017-03-12 10:23] LABS: URINE BILIRUBIN NEG (NEG)
[2017-03-12 10:43] LABS: AMPHETAMINE NEG (NEG); BARBITURATES NEG (NEG); BENZODIAZEPINES POS (NEG); COCAINE NEG (NEG); MARIJUANA NEG (NEG); OPIATES NEG (NEG); TRICYCLIC ANTIDEPRESSANTS NEG (NEG); U METHADONE NEG (NEG)
== END 2017-03-13 11:20 | DRG 897 ==
LOC: P1E 23:38
PROVIDERS: Psychiatry & Neurology Psychiatry
PROC: HZ2ZZZZ Detoxification Services for Substance Abuse Treatment (ICD-10-PCS; principal; 2017-03-09)
DX: F10.239 Alcohol dependence with withdrawal, unspecified (principal); F11.20 Opioid dependence, uncomplicated; F10.24 Alcohol dependence with alcohol-induced mood disorder; B19.20 Unspecified viral hepatitis C without hepatic coma; J44.9 Chronic obstructive pulmonary disease, unspecified
CPT/HCPCS: 71020; 80053; 80307; 81003; 85025; 86592